=== PATIENT | male | born 1960 | race Caucasian/White ===

== ENCOUNTER 2018-09-29 03:00 | Inpatient (IN) | payer BC ==
[2018-09-27 11:05] LABS: HEMOGLOBIN 15.7 g/dL (13.9-16.3); MEAN CELL HGB 28.3 pg (26-34); MEAN CORP VOLUME 88.4 fL (78-100); MEAN PLATELET VOLUME 8.6 fL (7.8-11.0); RED CELL DISTRIBUTION WIDTH 14.4 % (11.5-14.5)
--- NOTE | 2018-09-27 11:10 | PCM.EKG ---
[facility] Test Date: 2018-09-27 Test Time: 11:10:31 Pat Name: ASIA REECE Department: Room: Gender: M Director Of Category Management: : 1960 Requested By: ASIA BARRETO Order Number: [id number] Reading MD: Solitario Ray Measurements Intervals [place] Rate: 70 P: 42 OK: 160 QRS: 56 QRSD: 78 T: 36 QT: 396 QTc: 427 Interpretive Statements Normal sinus rhythm Normal ECG No previous ECG available for comparison Electronically Signed On 09-27-2018 14:25:33 BARMAID by Solitario Ray Please click the below link to view image of tracing.
[2018-09-27 11:36] LABS: CALCIUM 9.8 mg/dL (8.4-10.5); CARBON DIOXIDE 28.1 mmol/L (20.0-32)
[2018-09-27 11:54] VITALS: BP 126/80
[~2018-09-29] VITALS: Ht 180.3 cm; Wt 91.2 kg
[2018-09-29] VITALS (12 sets, daily range): BP systolic 87–136; BP diastolic 47–93
[~2018-09-29 03:00] MED LIST: ASCO10002 PO; CALC-76 PO; EXPAREL 266 MG/20 ML VIAL IJ ONE; OLME40TA12 PO; POTASSIUM PO; [UNRECOGNIZED DRUG - CODE] PO
[2018-09-29] MEDS ORDERED: ANCEF ONE (05:22)
[2018-09-29] MEDS ORDERED: LACTATED RINGERS 1,000 ML ONE ×5 (05:22→13:44)
[2018-09-29] MEDS ORDERED: NS 100ML 100 ML IV ONE ×3 (05:23→09:01)
[2018-09-29] MEDS ORDERED: ANCEF 2 GM/D5W 50ML IV ONE (06:00)
[2018-09-29] MEDS: LACTATED RINGERS 1,000 ML IV SCH ×2 (06:23→20:40)
[2018-09-29] MEDS ORDERED: NEOSTIGMINE ONE (06:42)
[2018-09-29] MEDS ORDERED: DECADRON ONE (06:42)
[2018-09-29] MEDS ORDERED: ZOFRAN ONE (06:42)
[2018-09-29] MEDS ORDERED: SUBLIMAZE ONE (06:43)
[2018-09-29] MEDS ORDERED: TORADOL ONE (06:43)
[2018-09-29] MEDS ORDERED: DIPRIVAN IV ONE (06:43)
[2018-09-29] MEDS ORDERED: VERSED ONE (06:43)
[2018-09-29] MEDS ORDERED: ZEMURON IV ONE (06:43)
[2018-09-29] MEDS ORDERED: LIDOCAINE 2% VIAL ONE (06:44)
[2018-09-29] MEDS ORDERED: SENSORCAINE-MPF 0.5% VIAL ONE ×2 (06:44→07:02)
[2018-09-29] MEDS ORDERED: DILAUDID ONE (06:44)
[2018-09-29] MEDS ORDERED: NS 3000ML IRR IR ONE (07:01)
[2018-09-29] MEDS ORDERED: SODIUM CHLORIDE IR ONE ×2 (07:01→10:25)
[2018-09-29] MEDS ORDERED: NS 250ML 250 ML IV ONE (07:01)
[2018-09-29] MEDS ORDERED: TYLENOL PO SCH (07:30)
[2018-09-29] MEDS ORDERED: NEURONTIN PO SCH (07:30)
[2018-09-29] MEDS ORDERED: TRANEXAMIC ACID IV ONE ×2 (08:04→10:02)
[2018-09-29] MEDS ORDERED: BENADRYL IV PRN (11:30)
[2018-09-29] MEDS ORDERED: VENTOLIN IH PRN (11:30)
[2018-09-29] MEDS ORDERED: DILAUDID IV PRN ×2 (11:30→16:00)
[2018-09-29] MEDS ORDERED: ZOFRAN IV PRN (11:30)
[2018-09-29] MEDS ORDERED: PHENERGAN IV PRN (11:30)
[2018-09-29] MEDS ORDERED: HESPAN 6%-NS INFUSION BAG 500 ML IV ONE ×2 (12:04→12:30)
--- NOTE | 2018-09-29 12:35 | DIREP ---
PROCEDURE:XRAY SHOULDER MIN 2 VWS-RT COMPARISON:None. INDICATIONS:POST TOAL RIGHT SHOULDER FINDINGS: BONES:No acute fracture. JOINTS:Right shoulder arthroplasty appears intact and appropriately aligned. Minimal degenerative changes of the right acromioclavicular joint. SOFT TISSUES:Soft tissue edema and emphysema about the right shoulder would be consistent with recent operative intervention as indicated by overlying skin aimee. CONCLUSION: 1. Postoperative changes of recent right shoulder arthroplasty. No suspicious abnormality. Dictated by: John Grier M.D. On 09/29/2018 at 12:30 PM
--- NOTE | 2018-09-29 13:18 | NUR ---
ADMISSIONS COMPLETED AT THIS TIME.
--- NOTE | 2018-09-29 13:47 | OPH ---
DATE OF SURGERY: 09/29/2018 PREOPERATIVE DIAGNOSIS: Osteoarthritis of the right shoulder. POSTOPERATIVE DIAGNOSIS: Osteoarthritis of the right shoulder. OPERATIVE PROCEDURE: Right shoulder hemiarthroplasty (resurfacing procedure), right shoulder using DePuy well bolt cap size 56 x 18. SURGEON: Gibran Roberts MD ANESTHESIA: General endotracheal. BLOOD LOSS: 400 mL. DRAINS: None. DESCRIPTION OF INDICATIONS: The patient is a 57-year-old male. He is right hand dominant, works as a rancher. He has had right shoulder pain for many years. Basically, he has lived with his symptoms and has done physical therapy as well as use anti-inflammatories and has had several cortisone injections. He to the point now where he has constant pain about the shoulder. The patient's x-rays show that he has complete [id number] about the right shoulder. There is no elevation of the humeral head. The MRI scan shows that his rotator cuff tendons are intact. The patient was taken to the operating room today for resurfacing hemiarthroplasty about the right shoulder because of his age and his work description. DESCRIPTION OF PROCEDURE: The patient was placed on the operating table in the supine position. A general endotracheal anesthetic was induced without difficulty. The patient was then placed in the beach chair position. The patient had her incision made about the anterior portion of the shoulder from the clavicle over the coracoid down to the axillary fold. Incision was taken through the skin and the subcutaneous tissues. The bleeding was controlled with cautery. The deltopectoral interval was identified and the cephalic vein was taken laterally. The patient then had the clavipectoral fascia opened. Deep retractors were then placed between the deltoid and the short head of the biceps. The bicipital tendon sheath was opened and the bicipital tendon was tagged with a #2 FiberWire suture. The pectoralis insertion was released over the course of about 1.5 cm. The inferior border of the subscapularis was identified and the vascular bundle was cauterized with the Aquamantys device. The patient then had the deep retractors applied. The subscapularis and the capsule was taken off of the lesser tuberosity. We left a tag of about 1.5 cm of tissue laterally to repair the subscapularis at the end of the case. The humeral head was then externally rotated and delivered out of the glenohumeral joint. The capsule was released around the inferior portion of the proximal humerus. The osteophytes were trimmed. The patient had the humeral head sized and the 56 x 18, had the best coverage. The 52 x 18 guide was placed over the head in the appropriate alignment. The guide pin was placed into the center of the head. The reamer was then placed over the guide pin and it was reamed down to the humeral head. Trial reduction was done after the cruciate punch was used. There was good stability about the shoulder and good range of motion. The patient then had the trial components removed. The 52 x 18 Global cap prosthesis was then impacted over the humeral head. C-arm view showed satisfactory sizing and placement of the prosthesis. The wounds were irrigated with Betadine-containing solution. The subscapularis was repaired with a #2 FiberWire in an interrupted [id number] manner. The bicep tendon was tenodesed to the pectoralis insertion. The patient then had the deltopectoral interval closed with a #1 Vicryl in a running manner. The subcutaneous was closed with a running 2-0 Monocryl barbed and then the skin was closed with aimee. A Prevena suction type dressing was applied. The patient was extubated in the operating room and sent to recovery in stable condition. Gibran Roberts MD DR: TAYLOR/brooke JOB# [id number]
--- NOTE | 2018-09-29 15:32 | PRM.PN ---
Subjective Subjective Date: Sep 29, 2018 Time: 15:31 Subjective No pain BP 100/60 Dressing dry Observe overnight for BP and pain control Patient History: Cerebrovascular disorder 32 MOTHER FH: cancer 33 FATHER, G8 BROTHER, G8 SISTER FH: lung cancer G8 SISTER Hypertension 32 MOTHER No known health problems G8 BROTHER G8 SISTER G8 SISTER VTE VTE Risk Total Score: 1 VTE Risk Score VTE Risk: Score 0-1 = Low Risk (Aggressive mobilization; early ambulation; no VTE prophylaxis required) Score 2: Moderate Risk (Intermittent/Pneumatic Compression Device OR Lovenox/Heparin/Coumadin) Score 3-4: High Risk (Intermittent/Pneumatic Compression Device AND Lovenox/Heparin/Coumadin) Score > or =5: Highest Risk (Intermittent/Pneumatic Compression Device AND Lovenox/Heparin/Coumadin) Review of Systems Allergies: Coded Allergies: codeine (Verified Allergy, Severe, BLOOD PRESSURE BOTTOMS OUT, "THEY ALMOST LOST ME", 09/27/18) Scheduled Ascorbic Acid (Vitamin C), 1,000 MG PO HS, (Reported) Calcium Carb & Cit/Vitamin D3 (Calcium + D3 Er Tablet), 1 EACH PO HS, (Reported) Olmesartan Medoxomil (Benicar), 1 TAB PO DAILY24, (Reported) Thiamine HCl (B-1), 100 MG PO HS, (Reported) Discontinued Medications [Potassium], 1 TAB PO Q48H, (Reported) Discontinued Reason: Discontinue Objective Vitals and I/O Vital Sign - Last 24 Hours 09/29/18 09/29/18 09/29/18 09/29/18 06:08 06:08 07:16 07:19 Temp 97.8 97.8 Pulse 78 74 75 Resp 16 18 18 B/P (MAP) 122/89 (100) 136/93 (107) 109/79 (89) Pulse Ox 98 96 97 O2 Delivery Room Air Room Air Nasal Canula Nasal Canula O2 Flow Rate 2 2 09/29/18 09/29/18 09/29/18 09/29/18 07:21 11:00 11:00 11:30 Temp 97 97.5 97.0 97.5 Pulse 70 58 56 Resp 18 18 18 B/P (MAP) 107/77 (87) 96/62 (73) 91/47 (62) Pulse Ox 99 94 94 O2 Delivery Nasal Canula Hi Con Mask Nasal Canula O2 Flow Rate 2 10 10 3 09/29/18 09/29/18 09/29/18 09/29/18 11:45 11:59 12:15 12:15 Temp 97 97.4 97.8 97.0 97.4 97.8 Pulse 70 70 74 75 Resp 18 18 18 18 B/P (MAP) 87/49 (62) 88/55 (66) 97/59 (72) 97/59 (72) Pulse Ox 94 93 93 95 O2 Delivery Nasal Canula Nasal Canula Nasal Canula Nasal Canula O2 Flow Rate 3 2 3 2 09/29/18 09/29/18 09/29/18 09/29/18 12:30 13:02 13:15 15:16 Temp 97.6 97.1 97.6 97.1 Pulse 74 72 72 Resp 18 17 17 B/P (MAP) 107/59 (75) 96/60 (72) Pulse Ox 94 94 94 O2 Delivery Nasal Canula Nasal Cannula Nasal Canula Nasal Cannula O2 Flow Rate 2 2.00 2.00 2.00 Course Sepsis Screening Results: Posi: NEGATIVE Sepsis Qualifier/Stage: NO DEFINITE RISK Vitals & review Data Vital Sign - Last 24 Hours 09/29/18 09/29/18 09/29/18 09/29/18 06:08 06:08 07:16 07:19 Temp 97.8 97.8 Pulse 78 74 75 Resp 16 18 18 B/P (MAP) 122/89 (100) 136/93 (107) 109/79 (89) Pulse Ox 98 96 97 O2 Delivery Room Air Room Air Nasal Canula Nasal Canula O2 Flow Rate 2 2 09/29/18 09/29/18 09/29/18 09/29/18 07:21 11:00 11:00 11:30 Temp 97 97.5 97.0 97.5 Pulse 70 58 56 Resp 18 18 18 B/P (MAP) 107/77 (87) 96/62 (73) 91/47 (62) Pulse Ox 99 94 94 O2 Delivery Nasal Canula Hi Con Mask Nasal Canula O2 Flow Rate 2 10 10 3 09/29/18 09/29/18 09/29/18 09/29/18 11:45 11:59 12:15 12:15 Temp 97 97.4 97.8 97.0 97.4 97.8 Pulse 70 70 74 75 Resp 18 18 18 18 B/P (MAP) 87/49 (62) 88/55 (66) 97/59 (72) 97/59 (72) Pulse Ox 94 93 93 95 O2 Delivery Nasal Canula Nasal Canula Nasal Canula Nasal Canula O2 Flow Rate 3 2 3 2 09/29/18 09/29/18 09/29/18 09/29/18 12:30 13:02 13:15 15:16 Temp 97.6 97.1 97.6 97.1 Pulse 74 72 72 Resp 18 17 17 B/P (MAP) 107/59 (75) 96/60 (72) Pulse Ox 94 94 94 O2 Delivery Nasal Canula Nasal Cannula Nasal Canula Nasal Cannula O2 Flow Rate 2 2.00 2.00 2.00 Laboratory Tests Test 09/29/18 06:15 Potassium Level 4.3 mmol/L Current Medications Medications (Trade) Dose Ordered Sig/Eloisa PRN Reason Start Time Stop Time Status Last Admin Albuterol Sulfate (Ventolin) 2.5 mg OT PRN WHEEZING 09/29/18 11:30 10/04/18 11:29 Diphenhydramine HCl (Benadryl) 25 mg Q5MIN PRN NAUSEA / VOMITING 09/29/18 11:30 10/04/18 11:29 Hydromorphone HCl (Dilaudid) 0.2 mg Q5MIN PRN PAIN MILD 09/29/18 11:30 09/30/18 11:29 Ondansetron HCl (Zofran) 4 mg PRN PRN nv 09/29/18 11:30 10/04/18 11:29 Promethazine HCl (Phenergan) 6.25 mg PRN PRN NAUSEA / VOMITING 09/29/18 11:30 10/04/18 11:29 ASIA BARRETO MD Sep 29, 2018 15:32
[2018-09-29] MEDS ORDERED: ULTRAM PO PRN ×2 (16:00)
[2018-09-29] MEDS: VANCOMYCIN HCL 1 GM in NS 250ML 250 ML IV SCH (17:46)
--- NOTE | 2018-09-29 18:21 | NUR ---
REPORT REPORT GIVEN TO ONCOMING SHIFT
--- NOTE | 2018-09-29 19:20 | NUR ---
report receioved report from offgoing shift
[2018-09-30 00:50] VITALS: BP 120/72
[2018-09-30 04:12] VITALS: BP 110/74
[2018-09-30] MEDS: LACTATED RINGERS 1,000 ML IV SCH (04:35)
[2018-09-30] MEDS: VANCOMYCIN HCL 1 GM in NS 250ML 250 ML IV SCH (04:35)
--- NOTE | 2018-09-30 06:39 | NUR ---
REPORT REPORT RECEIVED FROM ASSOCIATE PROFESSOR OF LAW
--- NOTE | 2018-09-30 06:41 | NUR ---
report report given to o/c shift
--- NOTE | 2018-09-30 07:07 | NUR ---
STATUS PT ASSESSED. PT RUE IS STILL NUMB TO WHERE PT IS STILL NOT ABLE TO MORE HIS FINGERS OR HAND. PT HAS NORMAL RADIAL PULSE TO PALPITATION. TO CAN FEEL WHEN I PRESS ON THE SHOULD BUT ONLY A SENSATION OF KNOWING THAT I AM TOUCHING HIM. WILL CONT TO MONITOR PT FURTHER.
[2018-09-30 08:07] VITALS: BP 114/76
--- NOTE | 2018-09-30 09:23 | PRM.PN ---
Subjective Subjective Date: Sep 30, 2018 Time: 09:21 Subjective No pain this am Block working well VSS Dressing dry Will dc Patient History: Cerebrovascular disorder 32 MOTHER FH: cancer 33 FATHER, G8 BROTHER, G8 SISTER FH: lung cancer G8 SISTER Hypertension 32 MOTHER No known health problems G8 BROTHER G8 SISTER G8 SISTER VTE VTE Risk Total Score: 1 VTE Risk Score VTE Risk: Score 0-1 = Low Risk (Aggressive mobilization; early ambulation; no VTE prophylaxis required) Score 2: Moderate Risk (Intermittent/Pneumatic Compression Device OR Lovenox/Heparin/Coumadin) Score 3-4: High Risk (Intermittent/Pneumatic Compression Device AND Lovenox/Heparin/Coumadin) Score > or =5: Highest Risk (Intermittent/Pneumatic Compression Device AND Lovenox/Heparin/Coumadin) Review of Systems Allergies: Coded Allergies: codeine (Verified Allergy, Severe, BLOOD PRESSURE BOTTOMS OUT, "THEY ALMOST LOST ME", 09/27/18) Scheduled Ascorbic Acid (Vitamin C), 1,000 MG PO HS, (Reported) Calcium Carb & Cit/Vitamin D3 (Calcium + D3 Er Tablet), 1 EACH PO HS, (Reported) Olmesartan Medoxomil (Benicar), 1 TAB PO DAILY24, (Reported) Thiamine HCl (B-1), 100 MG PO HS, (Reported) Discontinued Medications [Potassium], 1 TAB PO Q48H, (Reported) Discontinued Reason: Discontinue Objective Vitals and I/O Vital Sign - Last 24 Hours 09/29/18 09/29/18 09/29/18 09/29/18 11:00 11:00 11:30 11:45 Temp 97 97.5 97 97.0 97.5 97.0 Pulse 58 56 70 Resp 18 B/P (MAP) 96/62 (73) 91/47 (62) 87/49 (62) Pulse Ox 94 94 94 O2 Delivery Hi Con Mask Nasal Canula Nasal Canula O2 Flow Rate 10 10 3 3 09/29/18 09/29/18 09/29/18 09/29/18 11:59 12:15 12:15 12:30 Temp 97.4 97.8 97.6 97.4 97.8 97.6 Pulse 70 74 75 74 Resp 18 B/P (MAP) 88/55 (66) 97/59 (72) 97/59 (72) 107/59 (75) Pulse Ox 93 93 95 94 O2 Delivery Nasal Canula Nasal Canula Nasal Canula Nasal Canula O2 Flow Rate 2 3 2 2 09/29/18 09/29/18 09/29/18 09/29/18 13:02 13:15 15:16 16:30 Temp 97.1 97.1 Pulse 72 72 Resp 17 17 17 B/P (MAP) 96/60 (72) Pulse Ox 94 94 94 O2 Delivery Nasal Cannula Nasal Canula Nasal Cannula O2 Flow Rate 2.00 2.00 2.00 09/29/18 09/29/18 09/29/18 09/30/18 19:42 20:19 21:53 00:50 Temp 98.2 99.5 98.2 99.5 Pulse 99 101 102 Resp 18 B/P (MAP) 109/70 (83) 120/72 (88) Pulse Ox 90 91 98 O2 Delivery Room Air Room Air Nasal Cannula Room Air O2 Flow Rate 2.00 FiO2 21 09/30/18 09/30/18 09/30/18 09/30/18 04:12 07:01 08:07 08:10 Temp 98.5 98.1 98.5 98.1 Pulse 97 89 105 Resp 18 B/P (MAP) 110/74 (86) 114/76 (89) Pulse Ox 92 93 93 O2 Delivery Room Air Room Air Room Air Room Air FiO2 21 Intake and Output 09/29/18 09/29/18 09/30/18 15:00 23:00 07:00 Intake Total 5450 ml 750 ml 250 ml Balance 5450 ml 750 ml 250 ml Course Sepsis Screening Results: Posi: NEGATIVE Sepsis Qualifier/Stage: NO DEFINITE RISK Vitals & review Data Vital Sign - Last 24 Hours 09/29/18 09/29/18 09/29/18 09/29/18 06:08 06:08 07:16 07:19 Temp 97.8 97.8 Pulse 78 74 75 Resp 16 18 18 B/P (MAP) 122/89 (100) 136/93 (107) 109/79 (89) Pulse Ox 98 96 97 O2 Delivery Room Air Room Air Nasal Canula Nasal Canula O2 Flow Rate 2 2 09/29/18 09/29/18 09/29/18 09/29/18 07:21 11:00 11:00 11:30 Temp 97 97.5 97.0 97.5 Pulse 70 58 56 Resp 18 18 18 B/P (MAP) 107/77 (87) 96/62 (73) 91/47 (62) Pulse Ox 99 94 94 O2 Delivery Nasal Canula Hi Con Mask Nasal Canula O2 Flow Rate 2 10 10 3 09/29/18 09/29/18 09/29/18 09/29/18 11:45 11:59 12:15 12:15 Temp 97 97.4 97.8 97.0 97.4 97.8 Pulse 70 70 74 75 Resp 18 18 18 18 B/P (MAP) 87/49 (62) 88/55 (66) 97/59 (72) 97/59 (72) Pulse Ox 94 93 93 95 O2 Delivery Nasal Canula Nasal Canula Nasal Canula Nasal Canula O2 Flow Rate 3 2 3 2 09/29/18 09/29/18 09/29/18 09/29/18 12:30 13:02 13:15 15:16 Temp 97.6 97.1 97.6 97.1 Pulse 74 72 72 Resp 18 17 17 B/P (MAP) 107/59 (75) 96/60 (72) Pulse Ox 94 94 94 O2 Delivery Nasal Canula Nasal Cannula Nasal Canula Nasal Cannula O2 Flow Rate 2 2.00 2.00 2.00 Laboratory Tests Test 09/29/18 06:15 Potassium Level 4.3 mmol/L Current Medications Medications (Trade) Dose Ordered Sig/Eloisa PRN Reason Start Time Stop Time Status Last Admin Albuterol Sulfate (Ventolin) 2.5 mg OT PRN WHEEZING 09/29/18 11:30 10/04/18 11:29 Diphenhydramine HCl (Benadryl) 25 mg Q5MIN PRN NAUSEA / VOMITING 09/29/18 11:30 10/04/18 11:29 Hydromorphone HCl (Dilaudid) 0.2 mg Q5MIN PRN PAIN MILD 09/29/18 11:30 09/30/18 11:29 Ondansetron HCl (Zofran) 4 mg PRN PRN nv 09/29/18 11:30 10/04/18 11:29 Promethazine HCl (Phenergan) 6.25 mg PRN PRN NAUSEA / VOMITING 09/29/18 11:30 10/04/18 11:29 ASIA BARRETO MD Sep 30, 2018 09:23
--- NOTE | 2018-09-30 10:15 | NUR ---
DISCHARGE PT DISCHARGED AT THIS TIME. PT UNDERSTANDS ALL DISCHARGE INSTRUCTIONS AND FOLLOW UP APPOINTMENT ALONG WITH NEW MEDICATIONS. PT DENIES ANY OTHER QUESTIONS OR CONCERNS AT THIS TIME. PT LEAVES FLOOR BY PRIVATE VEHICLE ACCOMPANIED BY SPOUSE. NO OTHER NEEDS NOTED AT THIS TIME.
--- NOTE | 2018-09-30 11:03 | DSH ---
DATE OF DISCHARGE: 09/30/2018 ADMITTING DIAGNOSIS: Osteoarthritis of the right shoulder. OTHER DIAGNOSES: Include hypertension. DISCHARGE DIAGNOSIS: Osteoarthritis of the right shoulder. OPERATIVE PROCEDURE DATE: 09/29/2018. PROCEDURE PERFORMED: Resurfacing arthroplasty, right proximal humerus. CONSULTATIONS: None. COMPLICATIONS: None. SUMMARY OF ADMISSION: The patient is a 57-year-old male with severe pain about the right shoulder secondary to osteoarthritis. He does heavy ranch work. He was taken to the operating room yesterday for a hemiarthroplasty about the right shoulder secondary to pain. The patient's procedure was performed without incident. In the recovery room, the patient had some difficulty with hypotension. He was admitted overnight for observation and IV fluids. The patient's pain has been well controlled with his preoperative interscalene block. The patient has been on a regular diet. He has no pain today. The patient's vital signs at this point are stable. The patient's nasal swab was positive for MRSA and he has received appropriate IV vancomycin treatments as well as intranasal mupirocin treatment. The patient will be discharged today on 09/30/2018. He will be instructed to leave his dressing intact. The patient will use an arm sling. He has a prescription for tramadol for the pain. I will see him in my office in 1 week. Gibran Roberts MD DR: TAYLOR/brooke JOB# [id number]
--- NOTE | 2018-09-30 12:03 | NUR ---
Post-op day 1 follow up for right interscalene block with exparel. Pt v/s stable. Pt block still working, pt has had no pain in shoulder. Pt sitting in chair about to be discharged from hospital. Block site is cdi. Pt states no questions or concerns.
== END 2018-09-30 10:15 | disposition home or self-care (01) | DRG 483 ==
LOC: MS 03:00
PROVIDERS: ADMIT Orthopaedic Surgery; ATTEND Orthopaedic Surgery
PROC: 0RRJ0J6 Replacement of Right Shoulder Joint with Synthetic Substitute, Humeral Surface, Open Approach (ICD-10-PCS; principal; 2018-09-29 08:11)
DX: M19.011 Primary osteoarthritis, right shoulder (principal); I10 Essential (primary) hypertension; Z88.8 Allergy status to other drugs, medicaments and biological substances; Z88.5 Allergy status to narcotic agent; Z79.899 Other long term (current) drug therapy; Z82.49 Family history of ischemic heart disease and other diseases of the circulatory system; Z82.3 Family history of stroke; Z80.1 Family history of malignant neoplasm of trachea, bronchus and lung
CPT/HCPCS: 36415; 76000; 80053; 84132; 85027; 87070; 93005; A4217; J0690; J1100; J1885; J2001; J2250; J2405; J2710; J3010; J3490; J7050; J7120; 73030-RT; C9290

== ENCOUNTER → 2018-11-16 | Day surgery (SDC) | payer BC ==
[2018-11-15 15:08] LABS: BASOPHIL % 0.4 % (0.0-0.2); EOSINOPHIL # 0.4 10^3/uL (0.0-0.2); EOSINOPHIL % 5.1 % (0.0-5.0); HEMOGLOBIN 14.6 g/dL (13.9-16.3); LYMPHOCYTES % 23.7 % (24.0-44.0); MEAN CELL HGB 28.5 pg (26-34); MEAN CORP VOLUME 86.4 fL (78-100); MEAN PLATELET VOLUME 8.5 fL (7.8-11.0); MONOCYTES # 0.7 10^3/uL (0.3-0.8); MONOCYTES % 8.6 % (5.0-12.0); NEUTROPHIL # 5.1 10^3/uL (1.8-7.7); WHITE BLOOD CELL 8.3 10^3/uL (4.5-11.0)
[2018-11-15 15:25] LABS: CARBON DIOXIDE 24.4 mmol/L (20.0-32)
[2018-11-15 15:26] LABS: CALCIUM 8.8 mg/dL (8.4-10.5)
[2018-11-16] VITALS (9 sets, daily range): BP systolic 98–149; BP diastolic 57–95
[~2018-11-16] VITALS: Ht 180.3 cm; Wt 91.2 kg
[~2018-11-16] MED LIST changes: +ANCEF ONE; +DECADRON ONE; +DILAUDID IV PRN; +DIPRIVAN IV ONE; -EXPAREL 266 MG/20 ML VIAL IJ ONE; +LACTATED RINGERS 1,000 ML IV SCH; +LACTATED RINGERS 1,000 ML SCH; +LIDOCAINE 2% VIAL ONE; +NS 100ML 100 ML IV ONE; +REGLAN IV PRN; +SODIUM CHLORIDE IR ONE; +SUBLIMAZE IV PRN; +SUBLIMAZE ONE; +TORADOL ONE; +TRAM-47 PO; +XYLOCAINE 2%-EPI 1:100,000 ONE; +ZOFRAN IV PRN; +ZOFRAN ONE
--- NOTE | 2018-11-16 12:26 | OPH ---
DATE OF SURGERY: 11/16/2018 PREOPERATIVE DIAGNOSIS: Right carpal tunnel syndrome. POSTOPERATIVE DIAGNOSIS: Right carpal tunnel syndrome. OPERATIVE PROCEDURE: Right carpal tunnel release. SURGEON: Gibran Roberts MD ANESTHESIA: LMA. TOURNIQUET TIME: 12 minutes at 250 mmHg. DRAINS: None. BLOOD LOSS: 5 mL. DESCRIPTION OF INDICATIONS: The patient is a 57-year-old male with a several year history of numbness and paresthesias about the median nerve distribution of his right hand. In the past, he has had several cortisone injections about the carpal tunnel with temporary relief. He has tried bracing and anti-inflammatories. His symptoms are worse in the last 6 weeks. The patient has night pain as well as numbness in the index and long fingers. His EMG showed moderately severe right carpal tunnel syndrome. He was taken to the operating room today for right carpal tunnel release. DESCRIPTION OF PROCEDURE: The patient was placed on the operating table in the supine position. LMA anesthetic was induced without difficulty. Right upper extremity was padded and a tourniquet was applied. Right upper extremity was then sterilely prepped and draped. The arm was exsanguinated with an Esmarch and the tourniquet was inflated to 250 mmHg. The patient had a longitudinal incision made about the base of the palm. The incision was taken through the skin and the subcutaneous tissues. The palmar fascia was identified and opened proximally. A Bristol elevator was then placed beneath the transverse carpal ligament to protect the nerve and the tendons. Transverse carpal ligament was then released throughout its entirety. The nerve was inspected, there was no iatrogenic damage. The wounds were irrigated with saline. The skin edges were injected with 0.5% ropivacaine plain. The wound was then closed with a 3-0 Ethilon in a horizontal mattress method. The patient had a compressive dressing applied. He was extubated in the operating room and sent to recovery in stable condition. Gibran Roberts MD DR: TAYLOR/brooke JOB# [id number]
== END | disposition home or self-care (01) ==
LOC: SURG 00:47
PROVIDERS: ATTEND Orthopaedic Surgery
DX: G56.01 Carpal tunnel syndrome, right upper limb (principal); I10 Essential (primary) hypertension; F17.200 Nicotine dependence, unspecified, uncomplicated; M19.90 Unspecified osteoarthritis, unspecified site; E66.3 Overweight; Z68.28 Body mass index [BMI] 28.0-28.9, adult; Z98.890 Other specified postprocedural states; Z88.5 Allergy status to narcotic agent; Z72.89 Other problems related to lifestyle; Z79.899 Other long term (current) drug therapy; Z96.642 Presence of left artificial hip joint; Z82.49 Family history of ischemic heart disease and other diseases of the circulatory system; Z80.1 Family history of malignant neoplasm of trachea, bronchus and lung
CPT/HCPCS: 36415; 64721; 80048; 85025; A4217; A4649 ×3; J0690; J1100; J1885; J2001; J2405; J3010; J3490; J7050